=== PATIENT | male | born 1950 | race Two or more races ===

== ENCOUNTER 2017-12-04 17:06 | Inpatient (IN) | payer BC, OTHER ==
[~2017-12-04] VITALS: Ht 172.7 cm; Wt 91.7 kg
[2017-12-04] MEDS ORDERED: SODIUM CHLORIDE 0.9% 1,000 ML IV ONE (17:28)
[2017-12-04 17:59] LABS: Basophils # (auto) 0.1 uL; Basophils % (auto) 0.7 % (0.0-2.0); Eosinophils # (auto) 0 uL; Eosinophils % (auto) 0.3 % (0.0-7.0); Hematocrit 42.2 % (41.0-53.0); Lymphocytes # (auto) 2.8 uL; Lymphocytes % (auto) 22.9 % (10.0-50.0); Mean Corpuscular Hemoglobin 30.9 pg (28.0-32.0); Mean Corpuscular Hgb Conc. 33.3 g/dL (32.0-36.0); Mean Corpuscular Volume 92.9 fL (80.0-100.0); Neutrophils # (auto) 8.3 uL; Neutrophils % (auto) 68.1 % (37.0-80.0); Nucleated Red Blood Cells % 0.1 %; Platelet Count (auto) 265 10^3/uL (140-450); Red Blood Cells 4.54 10^6/uL (4.5-5.90); Red Cell Distribution Width 12.6 % (11.8-14.3); White Blood Cell 12.2 10^3/uL (4.4-10.8)
[2017-12-04 18:13] LABS: INR 1.03 (0.9-1.15); Prothrombin Time 11.2 sec (9.37-12.3)
[2017-12-04 18:16] LABS: Albumin 3.6 g/dL (3.4-5.0); BUN/Creatinine Ratio 15.1; Calcium 8.9 mg/dL (8.5-10.1); Magnesium 1.9 mg/dL (1.6-2.6); Potassium 4.2 mmol/L (3.5-5.1)
[2017-12-04 18:32] LABS: Bilirubin, Total 0.5 mg/dL (0.2-1.0); Total Protein 7.7 g/dL (6.4-8.2)
[2017-12-04] MEDS ORDERED: FUROSEMIDE 40 MG/4 ML VIAL IV ONE (19:00)
[2017-12-04] MEDS ORDERED: TEMAZEPAM 15 MG CAP PO PRN (19:15)
[2017-12-04] MEDS ORDERED: MORPHINE SULFATE 4 MG/ML SYR/VIAL IV PRN ×2 (19:15)
[2017-12-04] MEDS ORDERED: ACETAMINOPHEN 500 MG TAB PO PRN (19:15)
[2017-12-04] MEDS ORDERED: NITROGLYCERIN 0.4 MG SL TAB SL PRN (19:15)
[2017-12-04] MEDS ORDERED: ALBUTEROL SULF 2.5 MG/0.5ML(0.5%) NEB SOLN NEB PRN (19:15)
[2017-12-04] MEDS ORDERED: PROMETHAZINE HCL 25 MG/ML 1ML IV PRN (19:15)
[2017-12-04] MEDS ORDERED: HYDROcodone-ACET 5/325MG TAB PO PRN (19:15)
[2017-12-04] MEDS ORDERED: OSELTAMIVIR 75 MG CAP PO ONE (19:15)
[2017-12-04] MEDS ORDERED: LACTULOSE 20Gm/30ML SOLN PO PRN (19:15)
[2017-12-04] MEDS ORDERED: EPTIFIBATIDE INJ (2MG/ML) 10ML VIAL IV ONE (19:30)
[2017-12-04] MEDS ORDERED: EPTIFIBATIDE DRIP(0.75MG/ML) 100 ML IV ONE (19:30)
[2017-12-04 21:10] LABS: Alcohol, Urine < 3.0 mg/dL (0-5); Amphetamine Screen, Urine NEGATIVE (NEGATIVE); Barbiturate Scree,Urine NEGATIVE (NEGATIVE); Benzodiazephine Screen, Urine NEGATIVE (NEGATIVE); Cannabinoid Screen, Urine NEGATIVE (NEGATIVE); Cocaine Screen, Urine NEGATIVE (NEGATIVE); Opiate Scree,Urine NEGATIVE (NEGATIVE); Phencyclidine Screen, Urine NEGATIVE (NEGATIVE)
[2017-12-04] MEDS: CARVEDILOL 3.125 MG TAB PO SCH (21:22)
[2017-12-04] MEDS: ATORVASTATIN 20 MG TAB PO SCH (21:23)
[2017-12-04] MEDS: SODIUM CHLOR 0.9% PF (SALINE LOCK) 10ML VIAL IV SCH (22:00)
[2017-12-04 23:11] VITALS: BP 125/75
[2017-12-05] MEDS: IPRATROPIUM BROM 0.5 MG/2.5ML INH SOL NEB SCH ×4 (00:36→18:16)
[2017-12-05] MEDS: ALBUTEROL SULF 2.5 MG/0.5ML(0.5%) NEB SOLN NEB SCH ×4 (00:37→18:16)
[2017-12-05] MEDS: LORazepam 0.5 MG TAB PO PRN (01:15)
[2017-12-05 05:58] LABS: Basophils # (auto) 0.1 uL; Basophils % (auto) 0.6 % (0.0-2.0); Eosinophils # (auto) 0.1 uL; Eosinophils % (auto) 1.4 % (0.0-7.0); Hemoglobin 14.5 g/dL (13.5-17.5); Lymphocytes # (auto) 2.8 uL; Lymphocytes % (auto) 29.8 % (10.0-50.0); Mean Corpuscular Hemoglobin 31.2 pg (28.0-32.0); Mean Corpuscular Hgb Conc. 33.7 g/dL (32.0-36.0); Mean Corpuscular Volume 92.4 fL (80.0-100.0); Monocytes # (auto) 0.8 uL; Monocytes % (auto) 9.1 % (0.0-12.0); Neutrophils # (auto) 5.5 uL; Neutrophils % (auto) 59.1 % (37.0-80.0); Platelet Count (auto) 259 10^3/uL (140-450); Red Blood Cells 4.65 10^6/uL (4.5-5.90); Red Cell Distribution Width 12.4 % (11.8-14.3); White Blood Cell 9.3 10^3/uL (4.4-10.8)
[2017-12-05] MEDS: SODIUM CHLOR 0.9% PF (SALINE LOCK) 10ML VIAL IV SCH ×3 (06:13→22:58)
[2017-12-05 06:34] LABS: Albumin 3.6 g/dL (3.4-5.0); BUN/Creatinine Ratio 16.8; Bilirubin, Total 0.6 mg/dL (0.2-1.0); Calcium 8.7 mg/dL (8.5-10.1); Potassium 4.2 mmol/L (3.5-5.1); Total Protein 7.6 g/dL (6.4-8.2)
[2017-12-05] MEDS: FUROSEMIDE 40 MG/4 ML VIAL IV SCH ×2 (10:00→12:03)
[2017-12-05] MEDS ORDERED: ASPirin 81 mg TAB PO SCH (10:00)
[2017-12-05] MEDS: ENALAPRIL MALEATE 2.5 MG TAB PO SCH (10:00)
[2017-12-05] MEDS ORDERED: ENOXAPARIN SOD 40 MG/0.4 ML SYRINGE SC SCH (10:00)
[2017-12-05] MEDS: POTASSIUM CHL 20 Meq TABLET PO SCH (10:00)
[2017-12-05] MEDS: NITROGLYCERIN 0.2MG/HR TOPICAL PATCH TD SCH (10:08)
[2017-12-05] MEDS: CARVEDILOL 3.125 MG TAB PO SCH ×2 (10:11→22:28)
[2017-12-05] MEDS: OSELTAMIVIR 75 MG CAP PO SCH ×2 (10:11→22:00)
[2017-12-05] MEDS: ASPirin 81 mg TAB PO SCH (10:11)
[2017-12-05] MEDS: LEVOFLOXACIN 500MG 100 ML IV SCH (10:11)
[2017-12-05] MEDS ORDERED: ENOXAPARIN SOD 40 MG/0.4 ML SYRINGE SC ONE (11:30)
[2017-12-05 21:00] VITALS: BP 107/77
[2017-12-05 22:00] VITALS: BP 107/77
[2017-12-05] MEDS ORDERED: ENOXAPARIN SOD 100 MG/1 ML SYRINGE SC ONE (22:00)
[2017-12-05] MEDS: ATORVASTATIN 20 MG TAB PO SCH (22:28)
[2017-12-05 23:35] VITALS: BP 107/77
[2017-12-06] VITALS (7 sets, daily range): BP systolic 105–120; BP diastolic 68–82
[2017-12-06] MEDS: IPRATROPIUM BROM 0.5 MG/2.5ML INH SOL NEB SCH ×4 (01:03→19:22)
[2017-12-06] MEDS: ALBUTEROL SULF 2.5 MG/0.5ML(0.5%) NEB SOLN NEB SCH ×4 (01:03→19:22)
[2017-12-06] MEDS: SODIUM CHLOR 0.9% PF (SALINE LOCK) 10ML VIAL IV SCH ×3 (06:45→21:32)
[2017-12-06] MEDS ORDERED: IODIXANOL 320MG/ML 100ML BTL IV ONE (08:47)
[2017-12-06] MEDS ORDERED: LIDOCAINE 2%HCL (LOCAL ANESTH.) INJ 20ML MDV ONE (08:47)
[2017-12-06] MEDS ORDERED: SODIUM CHL 0.9% 0 ML ONE (09:02)
[2017-12-06] MEDS ORDERED: ANGIOMAX 250 MG VIAL IV ONE (09:02)
[2017-12-06] MEDS ORDERED: fentaNYL CITRATE 100 MCG/2 ML VL ONE (09:02)
[2017-12-06] MEDS ORDERED: MIDAZOLAM HCL 1MG/1ML-2 ML VIAL ONE (09:02)
[2017-12-06] MEDS: CARVEDILOL 3.125 MG TAB PO SCH ×2 (10:00→21:32)
[2017-12-06] MEDS: ENALAPRIL MALEATE 2.5 MG TAB PO SCH (10:00)
[2017-12-06] MEDS: NITROGLYCERIN 0.2MG/HR TOPICAL PATCH TD SCH (10:00)
[2017-12-06] MEDS: FUROSEMIDE 40 MG/4 ML VIAL IV SCH (10:00)
[2017-12-06] MEDS: ASPirin 81 mg TAB PO SCH (10:00)
[2017-12-06] MEDS: LORazepam 0.5 MG TAB PO PRN (11:42)
[2017-12-06] MEDS: POTASSIUM CHL 20 Meq TABLET PO SCH (12:54)
[2017-12-06] MEDS: LEVOFLOXACIN 500MG 100 ML IV SCH (12:54)
[2017-12-06] MEDS: ATORVASTATIN 20 MG TAB PO SCH (21:32)
[2017-12-07] MEDS: ALBUTEROL SULF 2.5 MG/0.5ML(0.5%) NEB SOLN NEB SCH ×3 (00:19→11:49)
[2017-12-07] MEDS: IPRATROPIUM BROM 0.5 MG/2.5ML INH SOL NEB SCH ×3 (00:19→11:49)
[2017-12-07 05:00] VITALS: BP 109/75
[2017-12-07] MEDS: SODIUM CHLOR 0.9% PF (SALINE LOCK) 10ML VIAL IV SCH ×2 (06:44→14:00)
[2017-12-07 09:00] VITALS: BP 117/76
[2017-12-07] MEDS: NITROGLYCERIN 0.2MG/HR TOPICAL PATCH TD SCH (10:00)
[2017-12-07] MEDS: ASPirin 81 mg TAB PO SCH (10:23)
[2017-12-07] MEDS: FUROSEMIDE 40 MG/4 ML VIAL IV SCH (10:23)
[2017-12-07] MEDS: CARVEDILOL 3.125 MG TAB PO SCH (10:24)
[2017-12-07] MEDS: POTASSIUM CHL 20 Meq TABLET PO SCH (10:24)
[2017-12-07] MEDS: ENALAPRIL MALEATE 2.5 MG TAB PO SCH (10:24)
[2017-12-07] MEDS: LEVOFLOXACIN 500MG 100 ML IV SCH (10:25)
[2017-12-07 13:00] VITALS: BP 108/70
[2017-12-07 16:26] VITALS: BP 108/70
== END 2017-12-07 17:30 | disposition home or self-care (01) | DRG 280 ==
LOC: ER 17:06 → OVERFLOW 17:07 → TELE-WESTW 12-05 20:43
PROVIDERS: ADMIT Internal Medicine; ATTEND Family Medicine
PROC: 4A023N7 Measurement of Cardiac Sampling and Pressure, Left Heart, Percutaneous Approach (ICD-10-PCS; principal; 2017-12-06)
PROC: B2111ZZ Fluoroscopy of Multiple Coronary Arteries using Low Osmolar Contrast (ICD-10-PCS; 2017-12-06)
PROC: B41F1ZZ Fluoroscopy of Right Lower Extremity Arteries using Low Osmolar Contrast (ICD-10-PCS; 2017-12-06)
DX: I21.4 Non-ST elevation (NSTEMI) myocardial infarction (principal); N17.0 Acute kidney failure with tubular necrosis; I95.9 Hypotension, unspecified; I42.9 Cardiomyopathy, unspecified; I11.0 Hypertensive heart disease with heart failure; I50.9 Heart failure, unspecified; Z96.652 Presence of left artificial knee joint; I44.7 Left bundle-branch block, unspecified; J20.9 Acute bronchitis, unspecified; F17.210 Nicotine dependence, cigarettes, uncomplicated; E78.5 Hyperlipidemia, unspecified; I25.10 Atherosclerotic heart disease of native coronary artery without angina pectoris; I25.2 Old myocardial infarction; Z79.82 Long term (current) use of aspirin; Z82.49 Family history of ischemic heart disease and other diseases of the circulatory system; Z90.89 Acquired absence of other organs
CPT/HCPCS: 36415; 71045; 80053; 80061; 80307; 82550; 83735; 83880; 84443; 84484; 85025; 85379; 85610; 85652; 85730; 86141; 87804; 93005; 93306; 93458; 94640; 94761; 96361; 96365; 96372; 96375; 99152; G0378; J1956; J2250; Q9967